=== PATIENT | male | born 1995 | race Two or more races ===

== ENCOUNTER 2025-06-02 15:11 | Emergency (ER) | payer SELFPAY ==
[~2025-06-02] VITALS: Ht 172.7 cm; Wt 72.0 kg
[2025-06-02 16:08] LABS: PLATELET COUNT (AUTO) 337 K/uL (150-450); RED BLOOD CELL COUNT(AUTO) 5.32 MIL/uL (4.50-5.90); RED CELL DISTRIBUTION WIDTH 13.6 % (11.5-14.5); WHITE BLOOD COUNT (AUTO) 7.6 K/uL (4.5-11.0)
[2025-06-02 16:10] LABS: CALCIUM, TOTAL 9.0 mg/dL (8.8-10.5); CREATININE 0.91 mg/dL (0.60-1.30); GLOMERULAR FILTR. RATE CALC > 60 mL/min (>60); GLUCOSE,RANDOM 88 mg/dL (70-110); SODIUM SERUM 140 mmol/L (136-145); UREA NITROGEN, BLOOD 11 mg/dL (7-18)
[2025-06-02 17:49] VITALS: BP 110/69; PULSE 61; RESP 16; O2SAT 97
== END 2025-06-02 19:55 | disposition home or self-care (01) ==
LOC: EMS 15:11 → EDBD 15:11 → EMS 19:55
DX: F10.129 Alcohol abuse with intoxication, unspecified (principal); Y90.6 Blood alcohol level of 120-199 mg/100 ml
CPT/HCPCS: 99283; 80048; 85025; 36415; G0480